=== PATIENT | female | born 1985 | race Caucasian/White ===

== ENCOUNTER → 2022-04-26 | Outpatient (CLI) | payer BC | LOC: MAMMO 15:15 | DX: Z12.31 Encounter for screening mammogram for malignant neoplasm of breast (principal) ==

== ENCOUNTER → 2024-06-19 | Outpatient (CLI) | payer BC ==
[2024-06-19 09:52] LABS: BASO # 0.06 K/mm3 (0.02-0.10); EOS # 0.11 K/mm3 (0.04-0.40); EOS % 1.7 % (1.0-5.0); HEMATOCRIT 43.4 % (37.0-47.0); HEMOGLOBIN 14.1 g/dL (12.5-16.0); LYMPH# 1.76 K/mm3 (1.50-4.00); MEAN CELL VOLUME 89 fl (78-100); MEAN CORPUSCULAR HEMOGLOBIN 29 pg (27-31); MEAN CORPUSCULAR HGB CONC 33 g/dL (33-37); MEAN PLATELET VOLUME 11.3 fl (7.4-10.4); MONO # 0.37 K/mm3 (0.20-0.80); NEU # 3.98 K/mm3 (1.40-6.50); PLATELET COUNT 338 K/mm3 (130-400); RED BLOOD COUNT 4.88 M/mm3 (4.10-5.30); RED CELL DISTRIBUTION WIDTH 12.1 % (11.5-14.5); WHITE BLOOD COUNT 6.3 K/mm3 (4.8-10.8)
[2024-06-19 10:04] LABS: ALBUMIN 4.4 g/dL (3.5-5.0)
[2024-06-19 10:05] LABS: CALCIUM 9.5 mg/dL (8.3-10.5)
[2024-06-19 10:06] LABS: TOTAL PROTEIN 7.7 g/dL (6.4-8.3)
[2024-06-19 10:08] LABS: TOTAL BILIRUBIN 0.6 mg/dL (0.2-1.2)
== END ==
LOC: LAB 09:39
PROVIDERS: Physician Assistant
DX: Z13.1 Encounter for screening for diabetes mellitus (principal); Z13.220 Encounter for screening for lipoid disorders; E03.9 Hypothyroidism, unspecified; K90.9 Intestinal malabsorption, unspecified

== ENCOUNTER → 2024-08-14 | Outpatient (CLI) | payer BC | LOC: MAMMO 15:46 | DX: Z12.31 Encounter for screening mammogram for malignant neoplasm of breast (principal) ==